=== PATIENT | male | born 1975 | race Hispanic/Latino ===

== ENCOUNTER 2020-01-04 15:16 | Emergency (ER) | payer OTHER ==
[~2020-01-04] VITALS: Ht 160 cm; Wt 155.1 kg
--- NOTE | 2020-01-04 15:40 | Emergency Department Note ---
History of Present Illnes History of Present Illness History of Present Illness This is a 44 year old male . 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 Onset (how long ago): week(s) (left knee pain for 1 week) Radiation: Reports non-radiation Severity: moderate Duration (how long): week(s) (1 week, no fever no calf pain no hx of DVT ) Progression: unchanged Chronicity: new Context: Denies recent illness, Denies recent surgery, Denies recent immobilization, Denies recent travel, Denies trauma/injury, Denies new medications, Denies hx of DVT/PE, Denies non-compliance w/ medications, Denies other Relieving factors: none Exacerbating factors: movement Associated symptoms: Denies denies other symptoms, Denies confusion, Denies chest pain, Denies cough, Denies diaphoresis, Denies fever/chills, Denies headaches, Denies loss of appetite, Denies malaise, Denies nausea/vomiting, Denies rash, Denies seizure, Denies shortness of breath, Denies syncope, Denies weakness, Denies other Treatments prior to arrival: other (topical creams) Past Medical/Family History Physician Review I have reviewed the patient's past medical and family history. Any updates have been documented here. Past Medical History Recent Fever: No Clinical Suspicion of Infectio: No New/Unexplained Change in Ment: No Past Medical History: Hypertension, Hyperlipedemia Past Surgical History: Hernia Repair Social History Smoking Cessation: Current every day smoker Alcohol Use: None Any Illegal Drug Use: No Review of Systems Review of Systems Constitutional: Denies fever Cardiovascular: Denies edema Neurological: Denies numbness, Denies weakness Review of other systems: All other systems negative Physical Exam Related Data Vital signs reviewed: Yes Physical Exam CONSTITUTIONAL Constitutional: Present morbidly obese HENT HENT: Present normocephalic EYES Eyes: Reports conjunctivae normal NECK Neck: Present supple PULMONARY Pulmonary: Present breath sounds normal CARDIOVASCULAR Cardiovascular: Present regular rhythm GASTROINTESTINAL Abdominal: Present soft GENITOURINARY SKIN Skin: Present warm MUSCULOSKELETAL Musculoskeletal: Present other (pain at the knee joint with ROM, no erythema no calf swelling) NEUROLOGICAL Neurological: Present alert, Present oriented x 3 PSYCHOLOGICAL Psychological: Present mood/affect normal Results Imaging Imaging results reviewed: Yes Impressions Left complete knee. CPT CODE: 95850. INDICATION: ^pain ^[id number] ^1604 COMPARISON: None FINDINGS: No evidence of acute fracture or dislocation. Trace degenerative changes of the medial and patellofemoral compartments No joint effusion. IMPRESSION: Trace degenerative changes of the knee. No joint effusion. Signed by: Dr. Michelle Sun MD on 01/04/2020 4:15 PM Dictated By: MICHELLE SUN MD 14 Transcribed By: EMILIANO on 01/04/20 1615 Assessment & Plan Medical Decision Making MDM DJD, Bursitis, Meniscus injury, inflammatory arthritis Assessment & Plan Final Impression: (1) Hypertension (2) Degenerative joint disease of left knee (3) Arthralgia Depart Disposition: HOME, SELF-alf Meds Active Scripts Amlodipine Besylate (NORVASC) 10 Mg Tab, 10 MG PO DAILY for 30 Days, #30 Prov:SETH BARRETT MD 01/04/20 Naproxen (NAPROSYN) 500 Mg Tablet, 500 MG PO BID for 7 Days, #14 TAB Prov:SETH BARRETT MD 01/04/20 Medications in the ED Ketorolac Tromethamine 30 mg ONCE ONCE IM ; Start 01/04/20 at 15:45; Stop 01/04/20 at 15:46; Status UNV SETH BARRETT MD Jan 04, 2020 15:40
[2020-01-04] MEDS ORDERED: KETOROLAC TROMETHAMINE 60 MG/2 ML VIAL IM ONE (15:45)
[2020-01-04] MEDS ORDERED: NAPROSYN500 MG PO (15:45)
[2020-01-04] MEDS ORDERED: NORVASC10 MG PO (15:48)
--- NOTE | 2020-01-04 16:18 | Diagnostic Imaging Report ---
Left complete knee. CPT CODE: 57025. INDICATION: ^pain ^[id number] ^1604 COMPARISON: None FINDINGS: No evidence of acute fracture or dislocation. Trace degenerative changes of the medial and patellofemoral compartments No joint effusion. IMPRESSION: Trace degenerative changes of the knee. No joint effusion. Signed by: Dr. Aleksander Sun MD on 01/04/2020 4:15 PM
== END 2020-01-04 17:02 | disposition home or self-care (01) ==
LOC: FSED 15:16
DX: M25.562 Pain in left knee (principal); M17.12 Unilateral primary osteoarthritis, left knee; I10 Essential (primary) hypertension; E78.5 Hyperlipidemia, unspecified; E66.01 Morbid (severe) obesity due to excess calories; F17.210 Nicotine dependence, cigarettes, uncomplicated
CPT/HCPCS: 73562; 99283; J1885